=== PATIENT | male | born 1970 | race Caucasian/White ===

== ENCOUNTER → 2019-03-24 | Outpatient (CLI) | payer BC ==
[2019-03-24 11:20] LABS: HCT 44.1 % (39.0-53.0); HGB 15.5 gm/dL (13.0-17.5); MCH 31.8 pg (25.0-35.0); MCHC 35.2 g/dL (31.0-37.0); MCV 90.2 fL (80.0-100.0); Mean Platelet Volume 6.7; Platelet Count 245 k/uL (150-450); RBC 4.89 m/uL (4.30-5.90); RDW 12.5 % (11.5-15.5); WBC 4.7 k/uL (3.8-10.6)
[2019-03-24 17:22] LABS: African American GFR (CKD) 90.9 (60.0-200.0); Anion Gap 10.7 mmol/L (4.00-12.00); Carbon Dioxide 26.3 mmol/L (21.6-31.8); Chol/HDL Ratio 4.1; LDL Cholesterol,Calculated 123.2 mg/dL (0.0-131.0); VLDL Calculation 28.8 mg/dL (5.00-40.00)
[2019-03-24 19:18] LABS: Hemoglobin A1C 5.1 % (4.0-6.0)
== END | disposition home or self-care (01) ==
LOC: LABWHC1 10:12
PROVIDERS: ATTEND Internal Medicine
DX: I10 Essential (primary) hypertension (principal); R07.9 Chest pain, unspecified; R00.2 Palpitations
CPT/HCPCS: 36415; 80051; 80061; 82565; 83036; 84439; 84443; 84520; 85027

== ENCOUNTER → 2019-07-27 | Outpatient (CLI) | payer BC ==
[2019-07-27 17:37] LABS: Albumin 4.6 g/dL (3.80-4.90); Albumin/Globulin Ratio 2.19 (1.60-3.17); Bilirubin, Conjugated 0.3 mg/dL (0.20-0.40); Bilirubin,Unconjugated 0.8 mg/dL; Chol/HDL Ratio 4.17; Globulin 2.1 g/dL (1.6-3.3); Total Bilirubin 1.1 mg/dL (0.2-1.2); Total Protein 6.7 g/dL (6.2-8.2)
== END | disposition home or self-care (01) ==
LOC: LABWHC1 08:33
PROVIDERS: ATTEND Physician Assistant Medical
DX: Z13.220 Encounter for screening for lipoid disorders (principal)
CPT/HCPCS: 36415; 80061; 80076

== ENCOUNTER 2020-05-17 14:46 | Emergency (ER) | payer BC ==
[2020-05-17 14:55] VITALS: RESP 18
[2020-05-17] MEDS ORDERED: SODIUM CHLORIDE 0.9% 1,000 ML IV STA (15:32)
[2020-05-17] MEDS ORDERED: KETOROLAC 15 MG/ML 1 ML VIAL IVP STA (15:32)
--- NOTE | 2020-05-17 15:58 | ED ---
General Adult HPI - General Chief complaint: Abdominal Pain Stated complaint: Cough,Sore throat Time Seen by Provider: 05/17/20 15:22 Source: patient Mode of arrival: ambulatory - History of Present Illness Initial comments: 49-year-old male patient presents to the emergency department today for evaluation of upper respiratory congestion, cough, mild chest tightness. He is also reporting right flank pain which feels similar to her previous kidney stone. Patient states symptoms started on Friday and has seeming to get worse. Patient has been exposed to individuals positive for COVID-19. He denies any sputum production with his cough. Denies any chest pain or shortness of breath. He denies any hematuria, dysuria, urinary frequency, urinary urgency. States he has had some mild nausea with no vomiting. Denies constipation or diarrhea. Patient denies any recent rash, fever, chills, numbness, tingling, dizziness, weakness, headache, visual changes, or any other complaints. - Related Data Home Medications Medication Instructions Recorded Confirmed Cholecalciferol [Vitamin D3 (25 1,000 unit PO DAILY 05/17/20 05/17/20 Mcg = 1000 Iu)] Dm/Acetaminophen/Doxylamine [Vicks 30 ml PO Q6H PRN 05/17/20 05/17/20 Nyquil Cold-Flu Liquid] Levocetirizine Dihydrochloride 5 mg PO DAILY 05/17/20 05/17/20 [Xyzal] Super C 1 tab PO DAILY 05/17/20 05/17/20 Vitamin B Complex 1 cap PO DAILY 05/17/20 05/17/20 Zinc 50 mg PO DAILY 05/17/20 05/17/20 Previous Rx's Medication Instructions Recorded Ibuprofen [Motrin] 600 mg PO Q8HR PRN #30 tab 05/17/20 Ondansetron [Zofran ODT] 4 mg PO Q8HR PRN #10 tab 05/17/20 Tamsulosin HCl [Flomax] 0.4 mg PO DAILY #7 cap 05/17/20 Allergies Allergy/AdvReac Type Severity Reaction Status Date / Time adhesive Allergy Rash/Hives Verified 05/17/20 17:06 hydrocodone [From Vicodin] Allergy Rash/Hives Verified 05/17/20 17:06 latex Allergy Rash/Hives Verified 05/17/20 17:06 Review of Systems ROS Statement: Those systems with pertinent positive or pertinent negative responses have been documented in the HPI. ROS Other: All systems not noted in ROS Statement are negative. Past Medical History Past Medical History: No Reported History History of Any Multi-Drug Resistant Organisms: None Reported Past Surgical History: Cholecystectomy, Heart Catheterization Additional Past Surgical History / Comment(s): right knee x 2 left knee x 2 left shoulder, right shoulder x 3 Past Psychological History: No Psychological Hx Reported Smoking Status: Never smoker Past Alcohol Use History: Occasional Past Drug Use History: None Reported General Exam General appearance: alert, in no apparent distress, other (This is a well- developed, well-nourished adult male patient in no acute distress. Vital signs upon presentation are temperature 98.2F, pulse 83, respirations 18, blood pressure 139/86, pulse ox 98% on room air.) Eye exam: Present: normal appearance, PERRL, EOMI. Absent: scleral icterus, conjunctival injection, periorbital swelling ENT exam: Present: normal exam, normal oropharynx, mucous membranes moist Respiratory exam: Present: normal lung sounds bilaterally. Absent: respiratory distress, wheezes, rales, rhonchi, stridor Cardiovascular Exam: Present: regular rate, normal rhythm, normal heart sounds. Absent: systolic murmur, diastolic murmur, rubs, gallop, clicks GI/Abdominal exam: Present: soft, normal bowel sounds. Absent: distended, tenderness, guarding, rebound, rigid Back exam: Present: normal inspection, CVA tenderness (R). Absent: CVA tenderness (L) Neurological exam: Present: alert, oriented X3, CN II-XII intact Psychiatric exam: Present: normal affect, normal mood Skin exam: Present: warm, dry, intact, normal color. Absent: rash Course Vital Signs 05/17/20 05/17/20 14:51 17:56 Temperature 98.2 F 98.8 F Pulse Rate 83 79 Respiratory 18 18 Rate Blood Pressure 139/86 136/79 O2 Sat by Pulse 98 98 Oximetry Medical Decision Making - Medical Decision Making 49-year-old male patient presents to the emergency department today for evaluation of upper respiratory symptoms with cough and right flank pain possi ble kidney stone. Physical examination did reveal clear equal lung sounds. There is mild right CVA tenderness. Abdomen is soft and nontender. Labs reviewed and did reveal decreased white blood cell count at 3.6. Urinalysis did show moderate blood with 29 red blood cells. Coronavirus PCR was positive. KUB was negative. Chest x-ray was negative. Given patient's symptoms and history of kidney stones we will treat with Flomax and pain medication and instructions to follow-up with urology. I did inform him of his Covid result is instructed to quarantine until he is cleared by his primary care physician. He is instructed to follow-up with his primary care physician for recheck in 1-2 days per We did discuss return parameters and great detail. He verbalizes understanding and agrees with this plan - Lab Data Result diagrams: 05/17/20 16:00 05/17/20 16:00 Lab Results 05/17/20 05/17/20 05/17/20 Range/Units 16:00 16:00 16:00 WBC 3.6 L (3.8-10.6) k/uL RBC 4.92 (4.30-5.90) m/uL Hgb 15.6 (13.0-17.5) gm/dL Hct 45.5 (39.0-53.0) % MCV 92.5 (80.0-100.0) fL MCH 31.6 (25.0-35.0) pg MCHC 34.2 (31.0-37.0) g/dL RDW 12.6 (11.5-15.5) % Plt Count 178 (150-450) k/uL MPV 7.8 Neutrophils % 47 % Lymphocytes % 35 % Monocytes % 9 % Eosinophils % 2 % Basophils % 3 % Neutrophils # 1.7 (1.3-7.7) k/uL Lymphocytes # 1.3 (1.0-4.8) k/uL Monocytes # 0.3 (0-1.0) k/uL Eosinophils # 0.1 (0-0.7) k/uL Basophils # 0.1 (0-0.2) k/uL Sodium 137 (137-145) mmol/L Potassium 4.5 (3.5-5.1) mmol/L Chloride 103 (98-107) mmol/L Carbon Dioxide 28 (22-30) mmol/L Anion Gap 6 mmol/L BUN 19 (9-20) mg/dL Creatinine 1.07 (0.66-1.25) mg/dL Est GFR (CKD-EPI)AfAm >90 (>60 ml/min/1.73 sqM) Est GFR (CKD-EPI)NonAf 81 (>60 ml/min/1.73 sqM) Glucose 89 (74-99) mg/dL Calcium 9.2 (8.4-10.2) mg/dL Total Bilirubin 0.6 (0.2-1.3) mg/dL AST 40 (17-59) U/L ALT 44 (4-49) U/L Alkaline Phosphatase 57 (38-126) U/L Total Protein 7.6 (6.3-8.2) g/dL Albumin 4.6 (3.5-5.0) g/dL Amylase 58 (30-110) U/L Lipase 112 (23-300) U/L Urine Color Yellow Urine Appearance Clear (Clear) Urine pH 5.5 (5.0-8.0) Ur Specific [place] 1.018 (1.001-1.035) Urine Protein Negative (Negative) Urine Glucose (UA) Negative (Negative) Urine Ketones Negative (Negative) Urine Blood Moderate H (Negative) Urine Nitrite Negative (Negative) Urine Bilirubin Negative (Negative) Urine Urobilinogen <2.0 (<2.0) mg/dL Ur Leukocyte Esterase Negative (Negative) Urine RBC 29 H (0-5) /hpf Urine WBC <1 (0-5) /hpf Coronavirus (PCR) (Not Detectd) 05/17/20 Range/Units 16:00 WBC (3.8-10.6) k/uL RBC (4.30-5.90) m/uL Hgb (13.0-17.5) gm/dL Hct (39.0-53.0) % MCV (80.0-100.0) fL MCH (25.0-35.0) pg MCHC (31.0-37.0) g/dL RDW (11.5-15.5) % Plt Count (150-450) k/uL MPV Neutrophils % % Lymphocytes % % Monocytes % % Eosinophils % % Basophils % % Neutrophils # (1.3-7.7) k/uL Lymphocytes # (1.0-4.8) k/uL Monocytes # (0-1.0) k/uL Eosinophils # (0-0.7) k/uL Basophils # (0-0.2) k/uL Sodium (137-145) mmol/L Potassium (3.5-5.1) mmol/L Chloride (98-107) mmol/L Carbon Dioxide (22-30) mmol/L Anion Gap mmol/L BUN (9-20) mg/dL Creatinine (0.66-1.25) mg/dL Est GFR (CKD-EPI)AfAm (>60 ml/min/1.73 sqM) Est GFR (CKD-EPI)NonAf (>60 ml/min/1.73 sqM) Glucose (74-99) mg/dL Calcium (8.4-10.2) mg/dL Total Bilirubin (0.2-1.3) mg/dL AST (17-59) U/L ALT (4-49) U/L Alkaline Phosphatase (38-126) U/L Total Protein (6.3-8.2) g/dL Albumin (3.5-5.0) g/dL Amylase (30-110) U/L Lipase (23-300) U/L Urine Color Urine Appearance (Clear) Urine pH (5.0-8.0) Ur Specific [place] (1.001-1.035) Urine Protein (Negative) Urine Glucose (UA) (Negative) Urine Ketones (Negative) Urine Blood (Negative) Urine Nitrite (Negative) Urine Bilirubin (Negative) Urine Urobilinogen (<2.0) mg/dL Ur Leukocyte Esterase (Negative) Urine RBC (0-5) /hpf Urine WBC (0-5) /hpf Coronavirus (PCR) Detected A (Not Detectd) - Radiology Data Radiology results: report reviewed, image reviewed KUB was obtained. Report was reviewed in its entirety. Impression by Dr. Zhao shows overall nonspecific but strongly favor nonobstructive bowel gas pattern. One view x-ray of the chest is obtained. Report was reviewed in its entirety. Impression by Dr. Maurice Espinal shows lung volumes with mild patchy bibasilar linear atelectasis. Disposition Clinical Impression: COVID-19, Kidney stone on right side Disposition: HOME SELF-CARE Condition: Good Instructions (If sedation given, give patient instructions): Kidney Stones (ED), Viral Syndrome (ED) Additional Instructions: Increase fluids. Rest. Take Tylenol Motrin for pain control. You have COVID, please quarantine until cleared by your doctor or you are symptom/fever free for 3 days. Follow-up through primary care physician for recheck in 1-2 days. Return to the emergency department immediately for any new, worsening, or concerning symptoms. Prescriptions: Tamsulosin HCl [Flomax] 0.4 mg PO DAILY #7 cap Ibuprofen [Motrin] 600 mg PO Q8HR PRN #30 tab PRN Reason: Pain Ondansetron [Zofran ODT] 4 mg PO Q8HR PRN #10 tab PRN Reason: Nausea Is patient prescribed a controlled substance at d/c from ED?: No Referrals: Lavell Timmons MD [Primary Care Provider] - 1-2 days Time of Disposition: 17:04
--- NOTE | 2020-05-17 16:01 | XR ---
EXAMINATION TYPE: XR chest 1V portable DATE OF EXAM: 05/17/2020 COMPARISON: NONE HISTORY: Right-sided chest and abdominal pain TECHNIQUE: Single frontal view of the chest is obtained. FINDINGS: Low lung volumes with patchy bibasilar atelectasis. There is no suspicious focal air space opacity, pleural effusion, or pneumothorax seen bilaterally. The cardiac silhouette size is within normal limits. The osseous structures are intact. Cholecystectomy clips noted. IMPRESSION: Lung volumes with mild patchy bibasilar linear atelectasis.
--- NOTE | 2020-05-17 16:02 | XR ---
EXAMINATION TYPE: XR KUB DATE OF EXAM: 05/17/2020 3:56 PM CLINICAL HISTORY: Right-sided pain. TECHNIQUE: Two Upright KUB images of the abdomen are obtained. COMPARISON: None. FINDINGS: Some paucity of bowel gas. Scattered gas in nondistended stomach along with scattered small and large bowel loops. There is no visceromegaly, pneumoperitoneum, or abnormal calcification apprec iated. Few scattered bilateral pelvic phleboliths The lung bases are clear and the osseous structures are intact. IMPRESSION: Overall nonspecific but strongly favor nonobstructive bowel gas pattern.
[2020-05-17 16:25] LABS: Basophils # (A) 0.1 k/uL (0-0.2); Basophils % (A) 3 %; Eosinophils # (A) 0.1 k/uL (0-0.7); Eosinophils % (A) 2 %; HCT 45.5 % (39.0-53.0); HGB 15.6 gm/dL (13.0-17.5); Lymphocytes # (A) 1.3 k/uL (1.0-4.8); Lymphocytes % (A) 35 %; MCH 31.6 pg (25.0-35.0); MCHC 34.2 g/dL (31.0-37.0); MCV 92.5 fL (80.0-100.0); Mean Platelet Volume 7.8; Monocytes # (A) 0.3 k/uL (0-1.0); Monocytes % (A) 9 %; Neutrophils # (A) 1.7 k/uL (1.3-7.7); Neutrophils % (A) 47 %; Platelet Count 178 k/uL (150-450); RBC 4.92 m/uL (4.30-5.90); RDW 12.6 % (11.5-15.5); WBC 3.6 k/uL (3.8-10.6)
[2020-05-17 16:27] LABS: Appearance,Urine Clear (Clear); Bilirubin,Urine Negative (Negative); Blood,Urine Moderate (Negative); Color,Urine Yellow; Glucose,Urine (UA) Negative (Negative); Ketones,Urine Negative (Negative); Leukocyte Esterase,Urine Negative (Negative); Nitrite,Urine Negative (Negative); PH, Urine 5.5 (5.0-8.0); Protein,Urine Negative (Negative); RBC,Urine 29 /hpf (0-5); Specific Gravity,Urine 1.018 (1.001-1.035); Urobilinogen,Urine <2.0 mg/dL (<2.0); WBC,Urine <1 /hpf (0-5)
[2020-05-17 16:42] LABS: ALT 44 U/L (4-49); AST 40 U/L (17-59); African American GFR (CKD) >90 (>60 ml/min/1.73 sqM); Albumin 4.6 g/dL (3.5-5.0); Alkaline Phosphatase 57 U/L (38-126); Amylase 58 U/L (30-110); Anion Gap 6 mmol/L; Blood Urea Nitrogen 19 mg/dL (9-20); Calcium 9.2 mg/dL (8.4-10.2); Carbon Dioxide 28 mmol/L (22-30); Chloride 103 mmol/L (98-107); Glucose 89 mg/dL (74-99); Lipase 112 U/L (23-300); Non-African American GFR(CKD) 81 (>60 ml/min/1.73 sqM); Potassium 4.5 mmol/L (3.5-5.1); Sodium 137 mmol/L (137-145); Total Bilirubin 0.6 mg/dL (0.2-1.3); Total Protein 7.6 g/dL (6.3-8.2)
[2020-05-17] MEDS ORDERED: TAMSULOSIN 0.4 MG CAP.ER.24H PO STA (17:04)
[2020-05-17] MEDS ORDERED: IBUPROFEN 600 MG STARTER PACK 4 TAB BTL PO STA (17:04)
[2020-05-17] MEDS ORDERED: ACET/COD 300 MG/30 MG STARTER PACK 6 TAB BTL PO STA (17:04)
[2020-05-17 17:57] VITALS: BP 136/79; PULSE 79; TEMP 98.8
== END 2020-05-17 17:56 | disposition home or self-care (01) ==
LOC: EC 14:46
DX: U07.1 COVID-19 (principal); N20.0 Calculus of kidney; Z91.040 Latex allergy status; Z91.048 Other nonmedicinal substance allergy status; Z88.5 Allergy status to narcotic agent; Z88.6 Allergy status to analgesic agent
CPT/HCPCS: 36415; 80053; 82150; 83690; 85025; 81001; 87635; 71045; 74018; 99284; 96374; 96361; J1885

== ENCOUNTER 2021-11-01 18:10 | Emergency (ER) | payer BC ==
[2021-11-01 18:38] VITALS: PULSE 98; RESP 18; TEMP 98.2
[2021-11-01] MEDS ORDERED: IBUPROFEN 600 MG TAB PO STA (20:13)
[2021-11-01] MEDS ORDERED: DIPH,PERTUS(ACELL)TETVAC-LF 0.5 ML VIAL IM ONE (20:14)
[2021-11-01] MEDS ORDERED: BACITRACIN OINT 1 EACH PACKET TOPICAL ONE (20:14)
--- NOTE | 2021-11-01 20:34 | XR ---
EXAMINATION TYPE: XR finger LT DATE OF EXAM: 11/01/2021 8:24 PM INDICATION: Patient age:Male; 50 years old; Reason for study: 2nd digit, left hand, puncture injury w/drill; COMPARISON: None TECHNIQUE: AP lateral and oblique views of the left second digit. FINDINGS: There is a skin laceration without evidence of radiopaque foreign body or fracture. Normal alignment of the visualized joints. No acute osseous pathology is identified. No evidence of soft t issue swelling. IMPRESSION: 1. No acute osseous pathology. 2. No evidence radiopaque foreign body. 3. Skin laceration involving the left second digit.
[2021-11-01] MEDS ORDERED: LIDOCAINE 1% INJ 10MG/ML (5 ML VIAL-PF) SQ ONE (20:54)
[2021-11-01] MEDS ORDERED: CEPHALEXIN 500 MG CAP PO STA (22:55)
--- NOTE | 2021-11-01 23:02 | ED ---
General Adult HPI - General Chief complaint: Wound/Laceration Stated complaint: L hand finger lac. Time Seen by Provider: 11/01/21 20:12 Source: patient, RN notes reviewed Mode of arrival: ambulatory Limitations: no limitations - History of Present Illness Initial comments: 50-year-old male presents to emergency department for evaluation of injury to th e left second digit sustained with a drill this evening. Bleeding was controlled with direct pressure prior to arrival. Complains of mild pain from injury that worsens somewhat with flexion. Denies loss of sensation. No loss of range of motion. Uncertain of last tetanus shot. No further injury. - Related Data Home Medications Medication Instructions Recorded Confirmed Cholecalciferol [Vitamin D3 (25 1,000 unit PO DAILY 05/17/20 05/17/20 Mcg = 1000 Iu)] Dm/Acetaminophen/Doxylamine [Vicks 30 ml PO Q6H PRN 05/17/20 05/17/20 Nyquil Cold-Flu Liquid] Levocetirizine Dihydrochloride 5 mg PO DAILY 05/17/20 05/17/20 [Xyzal] Super C 1 tab PO DAILY 05/17/20 05/17/20 Vitamin B Complex 1 cap PO DAILY 05/17/20 05/17/20 Zinc 50 mg PO DAILY 05/17/20 05/17/20 Previous Rx's Medication Instructions Recorded Ibuprofen [Motrin] 600 mg PO Q8HR PRN #30 tab 05/17/20 Ondansetron [Zofran ODT] 4 mg PO Q8HR PRN #10 tab 05/17/20 Tamsulosin HCl [Flomax] 0.4 mg PO DAILY #7 cap 05/17/20 Cephalexin [Keflex] 500 mg PO BID 3 Days #6 cap 11/01/21 Allergies Allergy/AdvReac Type Severity Reaction Status Date / Time adhesive Allergy Rash/Hives Verified 05/17/20 17:06 hydrocodone [From Vicodin] Allergy Rash/Hives Verified 05/17/20 17:06 latex Allergy Rash/Hives Verified 05/17/20 17:06 Review of Systems ROS Statement: Those systems with pertinent positive or pertinent negative responses have been documented in the HPI. ROS Other: All systems not noted in ROS Statement are negative. Past Medical History Past Medical History: No Reported History History of Any Multi-Drug Resistant Organisms: None Reported Past Surgical History: Cholecystectomy, Heart Catheterization Additional Past Surgical History / Comment(s): right knee x 2 left knee x 2 left shoulder, right shoulder x 3 Past Psychological History: No Psychological Hx Reported Smoking Status: Never smoker Past Alcohol Use History: Occasional Past Drug Use History: None Reported General Exam Limitations: no limitations (Well-developed, well-nourished male in no acute distress. Initial temperature 98.2, pulse 98, respirations 18, blood pressure 144/80, pulse ox 98% on room air.) General appearance: alert, in no apparent distress Respiratory exam: Present: normal lung sounds bilaterally. Absent: respiratory distress, wheezes, rales, rhonchi, stridor Cardiovascular Exam: Present: regular rate, normal rhythm, normal heart sounds. Absent: systolic murmur, diastolic murmur, rubs, gallop, clicks GI/Abdominal exam: Present: soft, normal bowel sounds. Absent: distended, tenderness, guarding, rebound, rigid Left Forearm Wrist exam: Present: normal inspection, full ROM. Absent: tenderness, swelling Hand Wrist exam: Present: laceration (Laceration is irregular shape on radial and ulnar surfaces of the middle phalanx of the second digit. Distal sensation intact. Mild pain with flexion.) Neuro motor exam: Present: fingers 2-5 abduction intact Neurosensory exam: Present: median nerve intact Vascular: Present: normal capillary refill, radial pulse. Absent: vascular compromise, Pallo Neurological exam: Present: alert, oriented X3, CN II-XII intact Psychiatric exam: Present: normal affect, normal mood Course Vital Signs 11/01/21 18:37 Temperature 98.2 F Pulse Rate 98 Respiratory 18 Rate O2 Sat by Pulse 98 Oximetry Procedures - Laceration Laceration #2 Consent Obtained: verbal consent Indication: laceration Site: hand (2nd digit, left hand, middle phalanx, ulnar surface) Size (cm): 3 Description: irregular Depth: [id number] Anesthetic Used: lidocaine 1% Anesthesia Technique: nerve block Amount (mls): 3 Pre-repair: wound explored, irrigated extensively Type of Sutures: nylon Size of Sutures: 5-0 Number of Sutures: 5 Technique: simple, interrupted Patient Tolerated Procedure: well, no complications Additional Comments: Wound was thoroughly anesthetized with good anesthesia achieved. Wound was irrigated extensively, wound explored. No foreign body visualized. Wound edges were loosely approximated, though wound border is quite irregular. 5 simple interrupted sutures placed without difficulty. Wound care reviewed at length with patient. Bacitracin dressing applied. Instructed to have sutures removed in 7-10 days. Encouraged to follow up with PCP for wound recheck. Laceration #1 Consent Obtained: verbal consent Indication: laceration Site: hand (Second digit, left hand, middle phalanx, radial surface.) Size (cm): 2 Description: irregular Depth: [id number] Anesthetic Used: lidocaine 1% Anesthesia Technique: nerve block Amount (mls): 3 Pre-repair: wound explored, irrigated extensively Type of Sutures: nylon Size of Sutures: 5-0 Number of Sutures: 4 Technique: simple, interrupted Patient Tolerated Procedure: well, no complications Additional Comments: Wound was thoroughly anesthetized with good anesthesia achieved. Wound was irrigated extensively, wound explored. No foreign body visualized. Wound edges were loosely approximated, though wound border is quite irregular. 5 simple interrupted sutures placed without difficulty. Wound care reviewed at length with patient. Bacitracin dressing applied. Instructed to have sutures removed in 7-10 days. Encouraged to follow up with PCP for wound recheck. Medical Decision Making - Medical Decision Making 50-year-old male with a past medical history of cholecystectomy, heart catheterization, and multiple orthopedic surgeries presents to the emergency department for evaluation of wounds sustained to the second digit, middle phalanx, on the left hand. Patient states he accidentally pushed a drillbit through the affected digit. Wounds on both the radial and ulnar surfaces of the digit are irregular. X-ray was obtained showing no foreign body or osseous injury. Distal sensation intact. Pain worsens with flexion, though no loss in range of motion. Wounds were anesthetized via digital block, soaked in iodine bath, thoroughly irrigated, and loosely approximated with modest alignment. Bacitracin dressing was applied and patient was instructed on wound care and follow-up care. Patient tolerated procedure well. His tetanus shot was updated, Motrin given for pain, and Keflex given prophylactically. Discharge instructions were reviewed at length with patient, he verbalizes understanding and agrees with this plan. Return parameter this was discussed in detail. Attending: Mikey. - Radiology Data Radiology results: report reviewed, image reviewed X-ray of the second digit of the left hand was obtained. Report was reviewed in its entirety. Impression per Dr. Orlando is #1. No acute osseous pathology. #2. No evidence radiopaque foreign body. #3. Skin laceration involving the left second digit. Disposition Clinical Impression: Laceration of finger of left hand Disposition: HOME SELF-CARE Condition: Stable Instructions (If sedation given, give patient instructions): Care For Your Stitches (ED), Laceration (ED) Additional Instructions: Gently cleanse wound with mild soap and water twice daily. Apply triple antibiotic ointment and cover with Band-Aid. Make sure that wounds are covered when working or leaving the house. Monitor carefully for signs of infection including redness, foul-smelling drainage, or increased pain. You are being prescribed Keflex for infection prevention. May take Tylenol or Motrin for pain. Keep extremity elevated while at rest. Apply ice. Follow-up with your PCP for a recheck on Friday. Sutures to be removed in 7-10 days. Return to the emergency department with any new, worsening, or concerning symptoms. Prescriptions: Cephalexin [Keflex] 500 mg PO BID 3 Days #6 cap Is patient prescribed a controlled substance at d/c from ED?: No Referrals: Lavell Timmons MD [Primary Care Provider] - 1-2 days Time of Disposition: 23:02
== END 2021-11-01 23:08 | disposition home or self-care (01) ==
LOC: EC 18:10
DX: S61.211A Laceration without foreign body of left index finger without damage to nail, initial encounter (principal); Z88.5 Allergy status to narcotic agent; Z91.09 Other allergy status, other than to drugs and biological substances; Z91.040 Latex allergy status; W27.8XXA Contact with other nonpowered hand tool, initial encounter; Z23 Encounter for immunization
CPT/HCPCS: 99282; 12002; 73140; 90715; 90471; J2001

== ENCOUNTER → 2021-11-16 | Outpatient (CLI) | payer BC ==
--- NOTE | 2021-11-16 11:54 | US ---
EXAMINATION TYPE: US kidneys/renal and bladder DATE OF EXAM: 11/16/2021 COMPARISON: NONE CLINICAL HISTORY: R31.9 Hematuria. History of renal stones. EXAM MEASUREMENTS: Right Kidney: 12.2 x 4.8 x 6.9 cm Left Kidney: 11.9 x 6.4 x 5.8 cm Right Kidney: No hydronephrosis or masses seen Left Kidney: No hydronephrosis or masses seen Bladder: wnl There is no evidence for hydronephrosis at this point in time. No definitive nephrolithiasis is seen . No masses are identified. The urinary bladder is adequately distended. Bilateral ureteral jets a re not seen. IMPRESSION: Source of hematuria not identified. If symptoms of hematuria persist further investigatio n with CT urogram would be warranted.
== END | disposition home or self-care (01) ==
LOC: RADUSWWP 10:41
PROVIDERS: ATTEND Internal Medicine
DX: R31.9 Hematuria, unspecified (principal); Z87.442 Personal history of urinary calculi
CPT/HCPCS: 76770

== ENCOUNTER → 2022-01-10 | Outpatient (CLI) | payer BC ==
--- NOTE | 2022-01-10 08:34 | CT ---
EXAMINATION TYPE: CT abdomen pelvis wo con CT DLP: 1209 mGycm, Automated exposure control for dose reduction was used. DATE OF EXAM: 01/10/2022 8:21 AM COMPARISON: None CLINICAL INDICATION:Male, 51 years old with history of R31.1 BENIGN ESSENTIAL MICROSCOPIC HEMATURIA; Bilateral flank pain, history of renal stones TECHNIQUE: Axial CT of the abdomen and pelvis . Sagittal and coronal reformats were created on a [employer] workstation. Contrast used: None Oral contrast used: without Oral Contrast FINDINGS: LOWER CHEST: Unremarkable ABDOMEN LIVER: Unremarkable GALLBLADDER AND BILE DUCTS: The gallbladder is surgically absent. PANCREAS: Unremarkable. SPLEEN: Unremarkable. ADRENAL GLANDS: Unremarkable. KIDNEYS AND URETERS: No evidence of hydronephrosis or renal calculus. The ureters are unremarkable. PELVIS BLADDER: Incompletely distended but grossly unremarkable. REPRODUCTIVE: Unremarkable. ABDOMEN & PELVIS STOMACH AND BOWEL: No evidence of bowel obstruction. Appendix is normal. PERITONEUM: No evidence of pneumoperitoneum or free fluid. VASCULATURE: Pelvic phleboliths are present MUSCULOSKELETAL: No acute osseous abnormalities LYMPH NODES: No gross evidence for lymphadenopathy. SOFT TISSUE/ABDOMINAL WALL: Bilateral fat filled inguinal hernia. IMPRESSION: No evidence of hydronephrosis, or urothelial calculus. No acute process within the abdomen and pelvis .
== END | disposition home or self-care (01) ==
LOC: RADCTMAIN 07:55
PROVIDERS: ATTEND Urology
DX: R31.1 Benign essential microscopic hematuria (principal)
CPT/HCPCS: 74176

== ENCOUNTER → 2022-05-15 | Outpatient (CLI) | payer BC ==
--- NOTE | 2022-05-15 10:09 | CT ---
EXAMINATION TYPE: CT abdomen pelvis wo con CT DLP: 1110 mGycm, Automated exposure control for dose reduction was used. DATE OF EXAM: 05/15/2022 9:53 AM COMPARISON: 01/10/2022 CT CLINICAL INDICATION:Male, 51 years old with history of N23 unsp renal colic; Rt knee pain, pre op jojo nning TECHNIQUE: Axial CT of the abdomen and pelvis. Sagittal and coronal reformats were created on a [employer] workstation. Contrast used: None Oral contrast used: without Oral Contrast FINDINGS: LOWER CHEST: Unremarkable ABDOMEN LIVER: Unremarkable GALLBLADDER AND BILE DUCTS: The gallbladder surgically absent. PANCREAS: Unremarkable. SPLEEN: Unremarkable. ADRENAL GLANDS: Unremarkable. KIDNEYS AND URETERS: No evidence of hydronephrosis or renal calculus. The ureters are unremarkable. PELVIS BLADDER: Unremarkable REPRODUCTIVE: Unremarkable. ABDOMEN & PELVIS STOMACH AND BOWEL: No evidence of bowel obstruction. PERITONEUM: No evidence of pneumoperitoneum or free fluid. VASCULATURE: No evidence of aortic aneurysm. MUSCULOSKELETAL: No acute osseous abnormalities LYMPH NODES: No gross evidence for lymphadenopathy. SOFT TISSUE/ABDOMINAL WALL: Bilateral fat-containing inguinal hernias. Fat-containing umbilical herni a. IMPRESSION: No evidence for acute intra-abdominal process. Exam not significantly changed from prior 01/10/2022.
== END | disposition home or self-care (01) ==
LOC: RADCTMAIN 09:34
PROVIDERS: ATTEND Urology
DX: N23 Unspecified renal colic (principal)
CPT/HCPCS: 74176

== ENCOUNTER 2024-01-08 06:25 | Day surgery (SDC) | payer BC ==
[~2024-01-08 06:25] MED LIST: LIDOCAINE 1% (10MG/ML) FOR IV START INTRADERMA PRN
[2024-01-08] MEDS: IV FLUID CONTINUATION 1,000 ML IV ONE (06:42)
[2024-01-08 06:51] VITALS: TEMP 97.2
[2024-01-08] MEDS: LACTATED RINGERS 1,000 ML IV SCH (07:06)
[2024-01-08] MEDS ORDERED: PROPOFOL 10 MG/ML 20 ML VIAL IV ONE (07:27)
[2024-01-08] MEDS ORDERED: LIDOCAINE 1% INJ 10MG/ML (20 ML MDV) ONE (07:27)
--- NOTE | 2024-01-08 07:32 | P.GSHP ---
History of Present Illness H&P Date: 01/08/24 Chief Complaint: Right lower abdomen pain, screening colonoscopy This a 53-year-old male who has complaints of right lower quadrant pain. Patient presents today for screening colonoscopy. Past Medical History Past Medical History: No Reported History, Hypertension Additional Past Medical History / Comment(s): having some testing done re heart, no meds at this time,kidney stones History of Any Multi-Drug Resistant Organisms: None Reported Past Surgical History: Cholecystectomy, Heart Catheterization, Orthopedic Surgery Additional Past Surgical History / Comment(s): right knee x 2 left knee x 2 left shoulder, right shoulder x 3 Past Anesthesia/Blood Transfusion Reactions: No Reported Reaction Smoking Status: Never smoker - Past Family History Father Family Medical History: No Reported History Medications and Allergies Home Medications Medication Instructions Recorded Confirmed Type No Known Home Medications 01/05/24 01/05/24 History Allergies Allergy/AdvReac Type Severity Reaction Status Date / Time adhesive Allergy Rash/Hives Verified 01/08/24 06:54 hydrocodone [From Vicodin] Allergy Rash/Hives Verified 01/08/24 06:54 latex Allergy Rash/Hives Verified 01/08/24 06:54 Surgical - Exam Vital Signs Temp Pulse Resp BP Pulse Ox 97.2 F L 56 L 18 121/79 96 01/08/24 06:44 01/08/24 06:44 01/08/24 06:44 01/08/24 06:44 01/08/24 06:44 - General well developed, well nourished, no distress - Eyes PERRL - ENT normal pinna - Neck no masses - Respiratory normal expansion - Cardiovascular Rhythm: regular - Abdomen Abdomen: soft, non tender Assessment and Plan Assessment: Will perform screening colonoscopy
--- NOTE | 2024-01-08 07:39 | P.OP ---
Date of Procedure: 01/08/24 Preoperative Diagnosis: Screening colonoscopy Postoperative Diagnosis: Normal colon Procedure(s) Performed: Colonoscopy Anesthesia: MAC Surgeon: Magdaleno Zepeda Pathology: none sent Condition: stable Disposition: PACU Description of Procedure: No PROCEDURE: The patient was placed on the endoscopy table in the lateral position. Digital rectal examination was performed which revealed no abnormalities. The prostate was symmetrical without nodules. Flexible colonoscope was then placed in the patient's anus and passed throughout the entire colon. The ileocecal valve was visualized. The cecum, ascending, transverse, descending and sigmoid colon were normal. The rectum was normal as well. There were no masses, polyps or diverticula noted in the entire colon. SUMMARY OF FINDINGS: Normal colonoscopy.
[2024-01-08 08:22] VITALS: BP 123/71; PULSE 63; RESP 16
== END 2024-01-08 08:22 | disposition home or self-care (01) ==
LOC: ORWHC2ENDO 06:25
PROVIDERS: ATTEND Surgery
DX: I20.9 Angina pectoris, unspecified (principal); Z90.49 Acquired absence of other specified parts of digestive tract; Z88.5 Allergy status to narcotic agent; Z91.040 Latex allergy status
CPT/HCPCS: 45378; J2001; J2704

== ENCOUNTER → 2024-02-02 | Outpatient (CLI) | payer BC ==
--- NOTE | 2024-02-25 11:18 | CONS ---
CONSULTATION REASON FOR CONSULTATION: 53-year-old gentleman has been evaluated in the sleep center for significant excessive daytime sleepiness and possible obstructive sleep apnea-hypopnea syndrome. HISTORY OF PRESENT ILLNESS: Sleep-wake evaluation. The patient has been diagnosed with obstructive sleep apnea in about 1997, at that time was treated with CPAP for the short period of time. Presently his sleep schedule on days off from 9 p.m. to 6 a.m. and used to go to work at 6:30 am and on working days from 6:30 a.m. until 11:30 a.m. 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 No significant problems with falling asleep. During sleep, the patient has snoring and witnessed episodes of stopped breathing during the sleep by his . The patient wakes up from sleep 2 times with nocturia. No history of hypnagogic hallucinations, sleep paralysis, or cataplexy. In the morning, the patient feels significantly sleepy. [place] Sleepiness Scale is in very high range of 23. The patient may take nap around 3 p.m. Positive history of grinding teeth and restless leg symptoms. PAST MEDICAL HISTORY: Positive for asthma. Episodes of increasing blood pressure, sinus problems, including nasal polyps. PAST SURGICAL HISTORY: Cholecystectomy, bilateral knee surgery, left shoulder surgery. MEDICATIONS: Albuterol inhaler as needed. FAMILY HISTORY: during sleep, hypertension, heart problems, snoring, diabetes. REVIEW OF SYSTEMS: No fevers. No double vision. No recent chest pain. No shortness of breath. No abdominal pain. No bleeding episodes. No blood in the urine. No seizure episodes. Snoring, multiple awakenings from sleep, sleepiness during the day. PHYSICAL EXAMINATION: GENERAL: gentleman without distress. VITAL SIGNS: BP 124/88 , HR 66 , RR 16, height 5 feet 11 inches, weight 230, BMI 31.4, temperature 98.3, oxygen saturation at room air 96%. HEENT: PERRLA, EOMI. Retrognathia 2 mm , big uvula. Position of soft palate in the range 2-3. NECK: Supple, no JVD. Thyroid is not palpable. LUNGS: Clear to percussion and to auscultation. Good air exchange. No wheezing or rhonchi. HEART: S1, S2 regular. No murmurs, gallops, or rubs. ABDOMEN: Soft and nontender. Bowel sounds are present. No organomegaly appreciated. EXTREMITIES: No edema. No clubbing or cyanosis. PATTERN GRADER CUTTER: Awake, alert, and oriented X3. Cranial nerves 2 to 7 intact. There is no fasciculation or atrophy. noted. No focal deficits observed. IMPRESSION: 1. Snoring, witnessed episodes of stopped breathing during the sleep, multiple awakenings from sleep, sleepiness during the day, history of obstructive sleep apnea in the past. Obstructive sleep apnea-hypopnea syndrome. 2. Extremely severe sleepiness with very high [place] Sleepiness Scale of 23, necessity to include narcolepsy and idiopathic hypersomnia. 3. Mild obesity, BMI 31.4. 4. Asthma. 5. Sinus problems with history of nasal polyps. 6. History of episodes of increasing blood pressure. 7. Status post cholecystectomy. 8. Status post bilateral knee surgery. 9. Status post left shoulder surgery. PLAN: 1. Home sleep apnea test to check patient's breathing during the sleep. 2. Following plan after reading sleep study. If sleep study will be negative for obstructive sleep apnea-hypopnea syndrome, the patient will need multiple sleep latency tests for objective evaluation symptoms of excessive daytime sleepiness. 3. Sleep hygiene, regular time in bed for at least 7.5 to 8 hours. 4. No driving if feeling sleepiness. 5. Watching and losing weight. Keaton Adrian MD, PhD, FAASM Diplomat of [place] [employer] Sleep Medicine Board of [place] [employer] Loan Representative of [facility] [place] MMODL / FATMATAN: [id number] / MARCELLE
== END ==
LOC: 3 N SLEEP 10:50
PROVIDERS: ATTEND Internal Medicine
CPT/HCPCS: 99211

== ENCOUNTER 2024-03-16 05:47 | Day surgery (SDC) | payer BC ==
[2024-03-16] MEDS: IV FLUID CONTINUATION 1,000 ML IV ONE ×2 (06:15→09:46)
[2024-03-16] MEDS: LACTATED RINGERS 1,000 ML IV SCH (06:40)
[2024-03-16] MEDS: DEXAMETHASONE SOD PHOSPHATE 4 MG/ML 1 ML VIAL IV ONE (06:40)
[2024-03-16] MEDS: ONDANSETRON 4 MG/2 ML VIAL IVP ONE (06:40)
[2024-03-16] MEDS: ACETAMINOPHEN TAB 500 MG TAB PO PRN (06:41)
[2024-03-16] MEDS: HEPARIN SODIUM,PORCINE 5,000 UNIT/ML 1 ML VIAL SQ PRN (06:41)
[2024-03-16 06:57] LABS: Basophils % (A) 1 %; Eosinophils # (A) 0.1 k/uL (0-0.7); Eosinophils % (A) 2 %; HCT 47.4 % (39.0-53.0); HGB 15.3 gm/dL (13.0-17.5); Lymphocytes # (A) 1.7 k/uL (1.0-4.8); Lymphocytes % (A) 33 %; MCH 30.9 pg (25.0-35.0); MCHC 32.3 g/dL (31.0-37.0); MCV 95.5 fL (80.0-100.0); Mean Platelet Volume 8.6; Monocytes # (A) 0.3 k/uL (0-1.0); Monocytes % (A) 7 %; Neutrophils # (A) 2.7 k/uL (1.3-7.7); Neutrophils % (A) 55 %; Platelet Count 228 k/uL (150-450); RBC 4.96 m/uL (4.30-5.90); RDW 13.3 % (11.5-15.5)
[2024-03-16] MEDS ORDERED: fentaNYL (PF) 50 MCG/ML 2 ML AMP IV PRN (07:00)
[2024-03-16] MEDS: MIDAZOLAM 2 MG/2 ML VIAL IV ONE (07:08)
[2024-03-16 07:10] LABS: African American GFR (CKD) >90 (>60 ml/min/1.73 sqM); Anion Gap 7 mmol/L; Blood Urea Nitrogen 15 mg/dL (9-20); Calcium 9.7 mg/dL (8.4-10.2); Carbon Dioxide 25 mmol/L (22-30); Chloride 107 mmol/L (98-107); Glucose 93 mg/dL (74-99); Non-African American GFR(CKD) 84 (>60 ml/min/1.73 sqM); Potassium 4.3 mmol/L (3.5-5.1); Sodium 139 mmol/L (137-145)
--- NOTE | 2024-03-16 07:25 | P.ANPRN ---
Procedure Note - Anesthesia - Nerve Block Performed Bilateral Erector Spinae Single Time Out Performed: Yes (0708) Date of Procedure: 03/16/24 Procedure Start Time: 07:10 Procedure Stop Time: 07:18 Location of Patient: PreOp Indication: Acute Post-Operative Pain, Requested by Surgeon Sedation Type: Sedate with meaningful contact maintained Preparation: Sterile Prep, Sterile Dressing Position: Prone Catheter: None Needle Types: Pajunk Needle Gauge: 21 Ultrasound used to visualize needle placement: Yes Ultrasound used to observe medication spread: Yes Injectate: 0.5% Ropivacaine (see comment for volume) (25 mL of block solution used for each side which contains 15 mL of 0.5% ropivacaine mixed with 10 mL of preservative-free normal saline.) Blood Aspirated: No Pain Paresthesia on Injection Noted: No Resistance on Injection: Normal Image Stored and Saved: Yes Events: Uneventful and Well Tolerated
[2024-03-16] MEDS ORDERED: NEOSTIGMINE 1 MG/ML 10 ML VIAL ONE (07:33)
[2024-03-16] MEDS ORDERED: GLYCOPYRROLATE 0.2 MG/ML 2 ML VIAL ONE (07:33)
[2024-03-16] MEDS ORDERED: KETAMINE HCL IN 0.9 % NACL 50 MG/5 ML SYRINGE ONE (07:33)
[2024-03-16] MEDS ORDERED: LIDOCAINE 1% INJ 10MG/ML (20 ML MDV) ONE (07:33)
[2024-03-16] MEDS ORDERED: ROCURONIUM 10 MG/ML (5 ML VIAL) IV ONE (07:33)
[2024-03-16] MEDS ORDERED: PROPOFOL 10 MG/ML 20 ML VIAL IV ONE (07:33)
[2024-03-16] MEDS ORDERED: fentaNYL (PF) 50 MCG/ML 2 ML AMP ONE (07:33)
[2024-03-16] MEDS ORDERED: ROPIVACAINE 5 MG/ML 30 ML VIAL ONE (07:33)
[2024-03-16] MEDS ORDERED: KETOROLAC 15 MG/ML 1 ML VIAL ONE (07:33)
[2024-03-16] MEDS ORDERED: SUCCINYLCHOLINE CHLORIDE 200 MG/10 ML VIAL IV ONE (07:33)
[2024-03-16] MEDS ORDERED: SODIUM CHLORIDE 0.9% (PF) 10 ML VIAL ONE (07:33)
[2024-03-16] MEDS: LIDOCAINE 1%-EPI 1:100,000 20 ML VIAL SQ ONE ×2 (07:58→08:05)
[2024-03-16] MEDS: LACTATED RINGERS 1,000 ML IV ONE (08:42)
[2024-03-16 08:59] VITALS: TEMP 97.5
[2024-03-16 09:07] VITALS: RESP 16
--- NOTE | 2024-03-16 10:17 | P.OP ---
Date of Procedure: 03/16/24 Preoperative Diagnosis: Bilateral inguinal hernia Postoperative Diagnosis: Bilateral inguinal hernia Procedure(s) Performed: Laparoscopic robot-assisted pair of bilateral inguinal hernia Excision of bilateral cord lipoma Transversus abdominis plane block Anesthesia: ALFA Surgeon: Magdaleno Zepeda Estimated Blood Loss (ml): 5 Pathology: other (Bilateral cord lipoma) Condition: stable Disposition: PACU Description of Procedure: The patient's placed on the operating table in the supine position. The patient received general anesthesia. The patient's abdomen was prepped and draped in usual sterile fashion. The skin was anesthetized 1% local Xylocaine at the incision sites. Using an 11 blade a skin incision was made at the umbilicus. The fascia was grasped with a Lind[place] and then the peritoneal cavity was entered with the Veress needle. Position of the Veress needle was confirmed with a positive drop test. After adequate insufflation a 5 mm trocar was placed into the peritoneal cavity. A four-quadrant transverse abdominal plane block was performed 1% Xylocaine. The Laparoscope was placed the peritoneal cavity. And a robotic 8 mm trocar was placed in the right lateral position and then another 8 mm robotic trochars placed in the left lateral position. The original 5 mm trocar was exchanged for a 12 mm trocar. The patient was placed in reverse Trendelenburg and then the patient was docked to the robot. Next the peritoneum over top of the right inguinal hernia was incised and then using blunt and sharp dissection and electrocautery the hernia sac was dissected free from the floor of the inguinal canal. The cord lipoma was active free sent pathology. The hernia sac was completely reduced into the peritoneal cavity. And then using the Pro head filter tank tender helper mesh the hernia was repaired. The peritoneum was then sutured with 20V lock suture. Next the peritoneum over top of the left inguinal hernia was incised and then using blunt and sharp dissection and electrocautery the hernia sac was dissected free from the floor of the inguinal canal. The cord lipoma was dissected free sent pathology. The hernia sac was completely reduced into the peritoneal cavity. And then using the Pro head filter tank tender helper mesh the hernia was repaired. The peritoneum was then sutured with 20V lock suture. The patient was then undocked the robot. The needle was withdrawn from the peritoneal cavity. The umbilical trocar site was closed with 0 Ethibond suture. The skin was closed interrupted 3-0 Monocryl suture. Dermabond dressing was applied. Patient was sent to recovery in stable condition.
[2024-03-16 10:22] VITALS: BP 127/78; PULSE 57
== END 2024-03-16 11:05 | disposition home or self-care (01) ==
LOC: OR 05:47
PROVIDERS: ATTEND Surgery
DX: K40.20 Bilateral inguinal hernia, without obstruction or gangrene, not specified as recurrent
CPT/HCPCS: 49650; 64999; 80048; 85025; 88304; S2900

== ENCOUNTER → 2024-05-31 | Outpatient (CLI) | payer BC ==
--- NOTE | 2024-06-02 15:36 | P.PCN ---
Description of Procedure: CLINICAL: A home sleep apnea test has been done for confirmation of possible obstructive sleep apnea-hypopnea syndrome. DESCRIPTION OF PROCEDURE: RESULTS: Recording time was 10 hours 40 minutes. Evaluation time was 8 hours 5 minutes. Evaluation time is sufficient for making conclusion about results of the test. Raw data of sleep recording has been reviewed and is adequate. Respiratory channel showed 144 apneas and 210 hypopneas. Apnea-hypopnea index was 43.8 per hour. Pulse rate in the range between minimum 40, maximum 125, average 59 by computer calculation. Lowest desaturation was 62%. IMPRESSION: 1. Severe Obstructive Sleep Apnea Hypopnea Syndrome with severe oxygen desaturation. Please see other impressions from consultation. PLAN: 1. The patient should have PAP titration for correction of respiratory abnormallities during sleep. 2. I will see patient for follow up visit to discuss results of the test, eval uate clinical response on treatment with PAP therapy and make any necessary adjustments related to mask fitting, pressure, and humidification. 3. Watching and losing weight. 4. Sleep hygiene with regular time in bed for at least 8 hours. 5. No driving if feeling any sleepiness. Thank you very much for allowing me to participate in the management of your patient. Sincerely, Keaton Adrian MD, PhD, FAASM Diplomat of [place] [employer] Sleep Medicine Board of [place] [employer] Eap Clinician of [facility] [place] cc: Maya Gray DO
== END ==
LOC: 3 N SLEEP 11:17
PROVIDERS: ATTEND Internal Medicine
DX: G47.33 Obstructive sleep apnea (adult) (pediatric) (principal); G47.36 Sleep related hypoventilation in conditions classified elsewhere; Z91.048 Other nonmedicinal substance allergy status; Z91.040 Latex allergy status; Z88.5 Allergy status to narcotic agent

== ENCOUNTER 2024-07-20 19:26 | Outpatient (CLI) | payer BC ==
--- NOTE | 2024-07-21 14:01 | P.PCN ---
Description of Procedure: CLINICAL: Titration with positive air pressure has been done for correction of respiratory abnormalities during sleep. DESCRIPTION OF PROCEDURE: The standard montage for clinical polysomnography included the electroencephalogram, the electrocardiogram, the mentalis surface electromyography and Lead II cardiography. The respiratory battery consisted of measurements of nasal /buccal air flow, pressure transducer measurements from the nose, thoracic and /or abdominal effort and intercostal surface electromyography. Video monitoring has been done to check for any parasomnia events. Nocturnal oxyhemoglobin saturations were obtained by finger oximetry. Step-saenz titration with positive airway pressure was utilized to control respiratory events. Raw data of sleep recording has been reviewed and is adequate. RESULTS: Sleep efficiency was decreased to 79.2%. Latency to sleep onset was normal at 10.5 minutes.]. Sleep architecture showed stage N1 was increased to 11.1%, Delta sleep was absent 0%, REM sleep was normal 27.2%. Heart rate was minimum 49 BPM, maximum 62 BPM, average 54 BPM. EMG showed 23.1 periodic limb movements per hour with 0.2 micriarousals per hour. PAP titration have been done with CPAP up to the pressure 13 cm H2O. Patient was tried on BiPAP 14/10 and 15/11 cm of water. Apnea hypopnea index reduced to 10.1 at the pressure 13, it was 0 at the pressure 12 cm of water, but patient was at that pressure for very short period of time. IMPRESSION: 1. Severe obstructive sleep apnea hypopnea syndrome improved with PAP treatment. 2. Significant periodic limb movements have been documented. Please see other impressions from consultation. PLAN: 1. The patient will have treatment with positive air pressure equipment with the level of pressure AutoPAO 5-16 cm H2O and should use it every night for the whole night. 2. Watching weight. 3. Sleep hygiene with regular time in bed for at least 8 hours. 4. No driving if feeling any sleepiness. 5. I will see the patient for follow up visit to explain the results of the test, recommendations, check compliance with treatment and make any necessary adjustment related to mask fitting, pressure and humidification. 6. Please check iron profile including ferritin level. Low level of iron may increase risk for periodic limb movements Thank you very much for allowing me to participate in the management of your patient. Sincerely, Keaton Adrian MD, PhD, FAASM Diplomat of [place] [employer] Sleep Medicine Board of [place] [employer] Product Engineering Manager of [facility] [place] cc: Maya Gray DO
== END 2024-07-21 05:32 | disposition home or self-care (01) ==
LOC: 3 N SLEEP 19:26
PROVIDERS: ATTEND Internal Medicine
DX: G47.33 Obstructive sleep apnea (adult) (pediatric) (principal); G47.61 Periodic limb movement disorder; Z91.09 Other allergy status, other than to drugs and biological substances; Z88.5 Allergy status to narcotic agent; Z91.040 Latex allergy status
CPT/HCPCS: 95811

== ENCOUNTER → 2024-10-21 | Outpatient (CLI) | payer BC ==
[2024-10-21 14:11] VITALS: BP 126/87; PULSE 88; RESP 16; TEMP 97.8
--- NOTE | 2024-10-21 14:42 | P.PROGSL ---
Subjective DATE: 10/21/2024 FOLLOW UP VISIT. Patient with obstructive sleep apnea hypopnea syndrome return to sleep center for follow-up visit. Recently patient had sleep study which documented obstructive sleep apnea hypopnea syndrome. Patient was initiated on PAP therapy and today is first visit after treatment was started. I explained to the patient results of sleep studies in details Patient was able to use PAP equipment every night for the whole night, except patient was not able to use CPAP equipment after she had brain surgery recently. The patient does not have significant problems with the mask, PAP pressure and humidification. [place] sleepiness scale is significantly increased to 18. I checked information from PAP unit. PAP unit pressure 5-16 average 12.5 cm H2O. Usage is 100% and 97% for more then 4 hours, average 7.25 hours per night. Leak is not significant 3.6 l/m. Apnea Hypopnea Index is 5.6, which is borderline. MEDICATIONS: Please see below During physical exam: GENERAL: A pleasant patient without any distress. VITAL SIGNS: Please see below, weight 250 pounds. HEENT: PERRLA, EOMI.low position of soft palate, [place]ati 23. NECK: Supple. No JVD. LUNGS: Clear to percussion and to auscultation. Good air exchange. No wheezing or rhonchi. HEART: S1, S2 regular. ABDOMEN: Soft and nontender.[] EXTREMITIES: No clubbing or cyanosis. INSIDE CONTRACTOR SALES: Awake, alert, and oriented x3. No focal deficit. Impressions: 1. Severe obstructive sleep apnea-hypopnea syndrome, original apnea hypopnea index 43.8 with oxygen desaturation to 62%. Patient demonstrated great compliance with treatment, benefiting from treatment. 2. Status post recent brain surgery for pituitary tumor. 3. Mild obesity. 4. Asthma. 5. History of nasal polyps. 6. History of increased blood pressure episodes. 7. Status post cholecystectomy. 8. Status post bilateral knee surgery. 9. Status post left shoulder surgery. Plan: 1. Continue using PAP equipment every night for the whole night. 2. To change air filter at least 1-2 times per month. 3. PAP unit should stay lower then position of the head. 4. Advised patient to remove all remaining water from humidifier canister daily and make it dry after each usage. Refill canister with fresh distilled water before each usage. 5. Sleep hygiene with regular time in bed for at least 8 hours. 6. Precautions related to driving. No driving if feel any sleepiness. 7. I will maintain prescription for PAP supplies including mask, tube, filters. 8. Follow up visit in 3 months or earlier if patient has any problems. 9. Watching weight. Thank you very much for allowing me to participate in the management of your patient. Keaton Adrian MD, PhD, FAASM. Diplomat of [place] [employer], Sleep Medicine Board by [place] [employer] Retail Department Manager of [facility] [place] Objective - Vital Signs Vital Signs: Vital Signs Temp 97.8 F 10/21/24 14:11 Pulse 88 10/21/24 14:11 Resp 16 10/21/24 14:11 BP 126/87 10/21/24 14:11 Pulse Ox 96 10/21/24 14:11 FiO2 Home Medications: Home Medications Medication Instructions Recorded Confirmed Type Acetaminophen Tab [Tylenol] 650 mg PO Q6H #30 tab 03/16/24 Rx Docusate [Colace] 100 mg PO BID #20 capsule 03/16/24 Rx Ibuprofen [Motrin] 600 mg PO Q6HR PRN #40 tab 03/16/24 Rx oxyCODONE HCL [OxyIR] 5 mg PO Q6H PRN 3 Days #10 tab 03/16/24 Rx
== END ==
LOC: 3 N SLEEP 14:00
PROVIDERS: ATTEND Internal Medicine
DX: G47.33 Obstructive sleep apnea (adult) (pediatric) (principal); J45.909 Unspecified asthma, uncomplicated; E66.9 Obesity, unspecified; Z68.32 Body mass index [BMI] 32.0-32.9, adult; Z90.49 Acquired absence of other specified parts of digestive tract; Z98.890 Other specified postprocedural states; Z86.018 Personal history of other benign neoplasm; Z86.79 Personal history of other diseases of the circulatory system; Z91.048 Other nonmedicinal substance allergy status; Z88.5 Allergy status to narcotic agent; Z91.040 Latex allergy status
CPT/HCPCS: 99212

== ENCOUNTER → 2024-10-27 | Outpatient (CLI) | payer BC ==
[2024-10-27 15:40] LABS: Potassium 4.7 mmol/L (3.5-5.5)
[2024-10-27 15:41] LABS: Anion Gap 13.3 mmol/L (4.00-12.00); Carbon Dioxide 24.7 mmol/L (21.6-31.8); T4, Free (Free Thyroxine) 1.15 ng/dL (0.80-1.80)
[2024-10-27 18:42] LABS: Prolactin 9.6 ng/mL (2.100-17.000)
[2024-10-29 12:10] LABS: Growth Hormone, Human 0.1 ng/mL (<10)
== END | disposition home or self-care (01) ==
LOC: LABWHC1 10:25
PROVIDERS: ATTEND Neurological Surgery
DX: D43.2 Neoplasm of uncertain behavior of brain, unspecified (principal)
CPT/HCPCS: 36415; 80051; 82024; 82533; 83003; 84146; 84305; 84439